=== PATIENT | male | born 1945 | race Caucasian/White ===

== ENCOUNTER 2017-10-29 08:15 | Outpatient (CLI) | payer MEDICARE | END 2017-10-29 08:16 | disposition home or self-care (01) | LOC: DI 08:15 | PROVIDERS: ATTEND Internal Medicine Cardiovascular Disease | DX: I48.0 Paroxysmal atrial fibrillation (principal); I08.3 Combined rheumatic disorders of mitral, aortic and tricuspid valves | CPT/HCPCS: 93306 ==

== ENCOUNTER 2018-06-23 08:00 | Outpatient (CLI) | payer MEDICARE | END 2018-06-23 23:59 | disposition home or self-care (01) | LOC: LAB.WCP 08:00 | PROVIDERS: ATTEND Physician Assistant | DX: I48.91 Unspecified atrial fibrillation (principal); Z79.01 Long term (current) use of anticoagulants ==

== ENCOUNTER 2018-07-21 08:00 | Outpatient (CLI) | payer MEDICARE | END 2018-07-21 23:59 | disposition home or self-care (01) | LOC: LAB.WCP 08:00 | PROVIDERS: ATTEND Physician Assistant | DX: I48.91 Unspecified atrial fibrillation (principal); Z79.01 Long term (current) use of anticoagulants | CPT/HCPCS: 81025 ==

== ENCOUNTER 2018-08-25 08:00 | Outpatient (CLI) | payer MEDICARE | END 2018-08-25 23:59 | disposition home or self-care (01) | LOC: LAB.WCP 08:00 | PROVIDERS: ATTEND Physician Assistant | DX: I48.91 Unspecified atrial fibrillation (principal); Z79.01 Long term (current) use of anticoagulants ==

== ENCOUNTER 2018-10-08 08:00 | Outpatient (CLI) | payer MEDICARE | END 2018-10-08 23:59 | disposition home or self-care (01) | LOC: LAB.WCP 08:00 | PROVIDERS: ATTEND Physician Assistant | DX: I48.91 Unspecified atrial fibrillation (principal); Z79.01 Long term (current) use of anticoagulants ==

== ENCOUNTER 2018-11-01 08:00 | Outpatient (CLI) | payer MEDICARE | END 2018-11-01 08:01 | disposition home or self-care (01) | LOC: LAB.WCP 08:00 | PROVIDERS: ATTEND Family Medicine | DX: I48.91 Unspecified atrial fibrillation (principal); Z79.01 Long term (current) use of anticoagulants ==

== ENCOUNTER 2020-01-20 08:00 | Outpatient (CLI) | payer MEDICARE | END 2020-01-20 23:59 | disposition home or self-care (01) | LOC: LAB.R 08:00 | PROVIDERS: ATTEND Family Medicine | DX: R30.0 Dysuria (principal) | CPT/HCPCS: 87086; 87181 ==

== ENCOUNTER 2020-01-23 14:58 | Outpatient (CLI) | payer MEDICARE ==
[2020-01-23] MEDS ORDERED: IOVERSOL 320 100 ML VIAL IVP ONE ×3 (15:24→16:50)
[2020-01-23 15:36] LABS: CREATININE 1.4 mg/dL (0.6-1.2)
--- NOTE | 2020-01-23 16:57 | CT Report ---
PROCEDURE: IVP INDICATIONS: HEMATURIA, ELEV PSA, HX PROSTATE ADENOCARCINOMA CONTRAST: IV CONTRAST: Optiray 320 ml: 140 PO CONTRAST: *NO PO CONTRAST TECHNIQUE: After the administration of intravenous contrast, 5 mm thick sections acquired from the diaphragms to the symphysis. 5 mm thick coronal and sagittal reformats were acquired. For radiation dose reducti on, the following was used: automated exposure control, adjustment of mA and/or kV according to lorelei ent size. COMPARISON: None. FINDINGS: Image quality: Excellent. Lung bases: Lung bases are clear. Heart size is normal. Urinary system: Both kidneys are normal in size and enhancement. An ovoid cyst is seen projecting p osteriorly from the mid cortex of the right kidney, containing what appears to be a thin septation wi thin and no solid component. No urothelial mass at the kidney level is seen bilaterally. Both ureters are nondistended. At the left lateral bladder border there appears to be asymmetric 8mm mural thicke ondina of the bladder wall, and the prostate appears to have been previously resected.. Contrast-filled renal calyces are normal in morphology. Contrast filled portions of both ureters are normal in dayan elsi. Bladder wall thickness is normal. Solid organs: Liver and spleen are normal in size and enhancement. Gallbladder appears normal Bili lydia system is non dilated. Pancreas enhances normally. No adrenal nodules. Peritoneum and bowel: Bowel loops demonstrate normal wall thickness and caliber. No free fluid or a ir. Nodes and vessels: No retroperitoneal or mesenteric adenopathy by size criteria. Aorta and inferior vena cava are normal in size. Abdominal wall: No ventral hernias. Pelvis: No pathologic free pelvic fluid. No inguinal hernias or adenopathy. Bones: No suspicious bony lesions. No vertebral body compression fractures. IMPRESSION: Ovoid cyst projecting from the right posterior cortex, which does not appear solid on po stcontrast imaging. A thin single septation appears present within this cyst. The cyst could be furth er characterized by dedicated single organ ultrasound if clinically desired. X No hydronephrosis or nephrolithiasis found. Reported prior prostate carcinoma, and the prostate appears likely is previously resected. The left l ateral bladder wall is asymmetrically thickened when compared to the bladder elsewhere measuring up t o 8 mm in thickness over a AP dimension of approximately 4 cm. Retrograde cystoscopy may be warranted given this appearance. No adenopathy found, no osseous osteoblastic metastatic disease is seen. Reviewed by: Dane Holguin MD on 01/23/2020 4:56 PM PDT Approved by: Dane Holguin MD on 01/23/2020 4:56 PM PDT Station ID: [id number]
== END 2020-01-23 14:59 | disposition home or self-care (01) ==
LOC: DI 14:58
PROVIDERS: ATTEND Family Medicine
DX: R97.20 Elevated prostate specific antigen [PSA] (principal); Z85.46 Personal history of malignant neoplasm of prostate; R31.9 Hematuria, unspecified; R30.0 Dysuria; N28.1 Cyst of kidney, acquired
CPT/HCPCS: 36415; 74178; 82565; Q9967

== ENCOUNTER 2022-06-27 11:06 | Emergency (ER) | payer MEDICARE ==
[2022-06-27] MEDS ORDERED: diltiaZEM INJ 5 MG/ML VIAL IVP STA (11:33)
[2022-06-27 11:40] LABS: BASOPHILS % (AUTO) 0.4 %; EOSINOPHILS % (AUTO) 0.1 %; HCT - HEMATOCRIT 38.5 % (42.0-52.0); HGB - HEMOGLOBIN 12.4 g/dL (14.0-18.0); LYMPHOCYTES # (AUTO) 0.6 10^3/uL (1.5-3.5); LYMPHOCYTES % (AUTO) 8.6 %; MEAN CORPUSCULAR HEMOGLOBIN 30.6 pg (27.0-31.0); MEAN CORPUSCULAR HGB CONC 32.2 g/dL (32.0-36.0); MEAN CORPUSCULAR VOLUME 95.1 fL (80.0-94.0); MEAN PLATELET VOLUME 9.3 fL (7.4-11.4); MONOCYTES # (AUTO) 1.4 10^3/uL (0.0-1.0); NEUTROPHILS # (AUTO) 5.2 10^3/uL (1.5-6.6); NEUTROPHILS % (AUTO) 71.6 %; PLT - PLATELET COUNT 206 10^3/uL (130-450); RED BLOOD COUNT 4.05 10^6/uL (4.70-6.10); RED CELL DISTRIBUTION WIDTH 12.7 % (12.0-15.0); WHITE BLOOD COUNT 7.2 x10^3/uL (4.8-10.8)
[2022-06-27 11:49] LABS: ALBUMIN 4.3 g/dL (3.2-5.5); ALBUMIN/GLOBULIN RATIO 1.3 (1.0-2.2); BILIRUBIN,TOTAL 0.8 mg/dL (0.2-1.0); CALCIUM 9.2 mg/dL (8.5-10.3); CREATININE 1.5 mg/dL (0.6-1.2); MAGNESIUM 1.8 mg/dL (1.7-2.8); PHOSPHORUS 3.1 mg/dL (2.5-4.6); POTASSIUM 4.1 mmol/L (3.5-5.0); TOTAL PROTEIN 7.5 g/dL (6.7-8.2)
[2022-06-27] MEDS ORDERED: METOPROLOL 5 MG/5 ML VIAL IVP STA (11:52)
[2022-06-27] MEDS ORDERED: SODIUM CHLORIDE 0.9% 1,000 ML IV STA (11:52)
--- NOTE | 2022-06-27 11:52 | ED Physician Documentation ---
History of Present Illness - Stated complaint Stated Complaint: FAST HEART RATE - Chief complaint Chief Complaint: Cardiac - History obtained from History obtained from: Patient - Additonal information Additional information: 77-year-old gentleman with history of paroxysmal atrial fibrillation on 2 rate control agents and Pradaxa. He did not take his metoprolol this morning but has been compliant with his other medications. He has been sick for about 3 days with cough and congestion. He did not know he had a fever until he checked in here. He went to the walk-in clinic prior to arrival where he was noted to be in A-fib with RVR and referred here for further evaluation and treatment. PD PAST MEDICAL HISTORY - Past Medical History Cardiovascular: Hypertension, High cholesterol, Atrial fibrillation, Arrhythmia - Past Surgical History Past Surgical History: Yes - Present Medications Home Medications: Ambulatory Orders Medication Instructions Recorded Confirmed Metoprolol Tartrate 50 mg PO BID 11/08/13 06/27/22 Dabigatran Etexilate Mesylate 150 mg PO BID 06/27/22 06/27/22 [Dabigatran Etexilate] Montelukast [Singulair] 10 mg PO QPM 06/27/22 06/27/22 dilTIAZem HCL [Diltiazem 24Hr ER 240 mg PO DAILY 06/27/22 06/27/22 (Xr)] - Allergies Allergies/Adverse Reactions: Allergies Allergy/AdvReac Type Severity Reaction Status Date / Time No Known Drug Allergies Allergy Verified 11/08/13 09:58 - Social History Does the pt smoke?: No Smoking Status: Never smoker Does the pt drink ETOH?: Yes Does the pt have substance abuse?: No PD ED PE NORMAL - Vitals Vital signs reviewed: Yes - General General: Alert and oriented X 3, No acute distress - HEENT HEENT: PERRL, EOMI, Pharynx benign - Cardiac Cardiac: Other (Rapid and irregular without murmur) - Respiratory Respiratory: No respiratory distress, Clear bilaterally - Abdomen Abdomen: Non tender - Back Back: No CVA TTP, No spinal TTP - Derm Derm: Normal color, Warm and dry - Extremities Extremities: No edema, No calf tenderness / cord - Neuro Neuro: Alert and oriented X 3, Normal speech Results - Vitals Vitals: Vital Signs - 24 hr 06/27/22 06/27/22 06/27/22 11:08 11:19 12:00 Temperature 38.3 C H Heart Rate 75 161 H 118 H Respiratory 16 22 Rate Blood Pressure 130/69 107/66 O2 Saturation 97 94 06/27/22 06/27/22 06/27/22 12:18 12:37 13:09 Temperature Heart Rate 123 H 84 75 Respiratory 20 22 24 Rate Blood Pressure 104/69 99/54 L 101/60 O2 Saturation 94 90 L 96 06/27/22 13:14 Temperature Heart Rate 80 Respiratory 26 H Rate Blood Pressure O2 Saturation Oxygen O2 Source Room air - EKG (time done) 1114 EKG releavant findings:: EKG personally interpreted by author of this note. Relevant findings are: Rate: Rate (enter#) (164) Rhythm: Atrial fibrillation [place]: Normal QRS: Normal Ischemia: Non specific changes. No: ST elevation c/w ischemia - Labs Labs: Laboratory Tests 06/27/22 06/27/22 06/27/22 11:25 11:25 11:40 WBC 7.2 RBC 4.05 L Hgb 12.4 L Hct 38.5 L MCV 95.1 H MCH 30.6 MCHC 32.2 RDW 12.7 Plt Count 206 MPV 9.3 Neut # (Auto) 5.2 Lymph # (Auto) 0.6 L [place] # (Auto) 1.4 H Eos # (Auto) 0.0 Baso # (Auto) 0.0 Absolute Nucleated RBC 0.00 Nucleated RBC % 0.0 Sodium 132 L Potassium 4.1 Chloride 98 L Carbon Dioxide 23 Anion Gap 11.0 BUN 23 H Creatinine 1.5 H Estimated GFR (MDRD) 45 L Glucose 111 H Lactic Acid Calcium 9.2 Phosphorus 3.1 Magnesium 1.8 Total Bilirubin 0.8 AST 27 ALT 23 Alkaline Phosphatase 71 Total Protein 7.5 Albumin 4.3 Globulin 3.2 Albumin/Globulin Ratio 1.3 Lipase 47 Nasal Adenovirus (PCR) NOT DETECTED Nasal B. parapertussis DNA (PCR) NOT DETECTED Nasal Coronavir 229E PCR NOT DETECTED Nasal Coronavir HKU1 PCR NOT DETECTED Nasal Coronavir NL63 PCR NOT DETECTED Nasal Coronavir OC43 PCR NOT DETECTED Nasal Enterovir/Rhinovir PCR NOT DETECTED Nasal Influenza B PCR NOT DETECTED Nasal Influenza A PCR NOT DETECTED Nasal Parainfluen 1 PCR NOT DETECTED Nasal Parainfluen 2 PCR NOT DETECTED Nasal Parainfluen 3 PCR NOT DETECTED Nasal Parainfluen 4 PCR NOT DETECTED Nasal RSV (PCR) NOT DETECTED Nasal B.pertussis DNA PCR NOT DETECTED Nasal C.pneumoniae (PCR) NOT DETECTED [place] Human Metapneumo PCR NOT DETECTED Nasal M.pneumoniae (PCR) NOT DETECTED Nasal SARS-CoV-2 (PCR) DETECTED A 06/27/22 11:50 WBC RBC Hgb Hct MCV MCH MCHC RDW Plt Count MPV Neut # (Auto) Lymph # (Auto) [place] # (Auto) Eos # (Auto) Baso # (Auto) Absolute Nucleated RBC Nucleated RBC % Sodium Potassium Chloride Carbon Dioxide Anion Gap BUN Creatinine Estimated GFR (MDRD) Glucose Lactic Acid 1.0 Calcium Phosphorus Magnesium Total Bilirubin AST ALT Alkaline Phosphatase Total Protein Albumin Globulin Albumin/Globulin Ratio Lipase Nasal Adenovirus (PCR) Nasal B. parapertussis DNA (PCR) Nasal Coronavir 229E PCR Nasal Coronavir HKU1 PCR Nasal Coronavir NL63 PCR Nasal Coronavir OC43 PCR Nasal Enterovir/Rhinovir PCR Nasal Influenza B PCR Nasal Influenza A PCR Nasal Parainfluen 1 PCR Nasal Parainfluen 2 PCR Nasal Parainfluen 3 PCR Nasal Parainfluen 4 PCR Nasal RSV (PCR) Nasal B.pertussis DNA PCR Nasal C.pneumoniae (PCR) [place] Human Metapneumo PCR Nasal M.pneumoniae (PCR) Nasal SARS-CoV-2 (PCR) - Rads (name of study) Single view chest x-ray demonstrates coarse interstitial markings possibly bronchiectasis or atypical infection. Relevant Findings:: Final report received, EMP independent interpretation of test Procedures - Procedural sedation Sedation prep: Informed consent, Time out completed, Last meal (yesterday), PE performed, ASA 2 - mild disease Sedation Medications: propofol (100mg IVP x1) Mallampati classification: I Patient status during sedation: Responds to tactile Sedation recovery: Recovered uneventfully Time in sedation (Minutes): 10 - Cardioversion - Major 1 @ 1:00pm Time of attempt: 13:00 Indication: Tachyarrhythmia Risks, benefits, alternatives explained to: Pt CS via: Pads, AP approach Sync: Biphasic (120 joules) Post cardioversion rhythm: NSR (with ectopy) Performed by: ED MD VALENTINO Medical Decision Making - ED course Complexity details: reviewed results (CBC reviewed with mild anemia, actually better than priors. Also mild lymphopenia with a white cell count normal. CMP reviewed with mild hyponatremia, baseline kidney function, magnesium at 1.8, will give some IV magnesium as 1.8 is low normal. Lactate normal.) ED course: 77-year-old gentleman who presents with rapid A-fib in the setting of respiratory infection. Found to be positive for COVID. He was sedated and cardioverted successfully given that he is on therapeutic anticoagulation. Starting molnupiravir for antivirals noting that paxlovid interacts with his blood thinner. Departure - Departure Disposition: 01 Home, Self Care Clinical Impression: Atrial fibrillation with RVR, COVID-19 Condition: Stable Record reviewed to determine appropriate education?: Yes Instructions: Atrial Fibrillation Dc, ED Viral Syndrome Comments: Take the molnupiravir antivirals as directed until gone. Continue your current medications.Return for new or worsening symptoms. Do not drive today. You do have COVID and need to quarantine per CDC guidelines. As discussed, it looks like you have a probably an atypical/viral pneumonia on your x-ray. Recommend repeat x-ray in 2 weeks, for reevaluation. You can set this up with your clinic care physician with whom you should follow-up, next available appointment.
--- NOTE | 2022-06-27 12:21 | XRAY Report ---
PROCEDURE: Chest 1 View X-Ray INDICATIONS: cough, fever TECHNIQUE: One view of the chest was acquired. COMPARISON: 03/10/2018 FINDINGS: Surgical changes and devices: None. Lungs and pleura: Coarse interstitial markings, with more focal suspected bronchiectasis in the righ t lower lung. No pleural effusion. No dense consolidation. Mediastinum: Borderline large heart. Bones and chest wall: No suspicious bony lesions. Overlying soft tissues appear unremarkable. IMPRESSION: Coarse interstitial markings, and possible bronchiectasis, suspicious for bronchitis, possibly acute on chronic, and atypical infection. Consider future imaging surveillance to assess for resolution. Reviewed by: Maurice Stack MD on 06/27/2022 12:19 PM PST Approved by: Maurice Stack MD on 06/27/2022 12:19 PM PST Station ID: [id number]
[2022-06-27] MEDS ORDERED: MAGNESIUM SULFATE 2 GRAM 2 GM/50 ML BAG IV ONE (12:29)
[2022-06-27] MEDS ORDERED: PROPOFOL 200 MG/20 ML VIAL IVP STA (12:37)
[2022-06-27 12:46] LABS: B. PARAPERTUSSIS- RESP PCR PAN NOT DETECTED; B. PERTUSSIS- RESP PCR PANEL NOT DETECTED; C. PNEUMONIAE- RESP PCR PANEL NOT DETECTED; CORONAVIRUS 229E-RESP PCR NOT DETECTED; CORONAVIRUS HKU1-RESP PCR NOT DETECTED; CORONAVIRUS NL63-RESP PCR NOT DETECTED; CORONAVIRUS OC43-RESP PCR NOT DETECTED; HUMAN METAPNEUMOVIRUS NOT DETECTED; INFLUENZA A- RESP PCR PANEL NOT DETECTED; INFLUENZA B - RESP PCR PANEL NOT DETECTED; M. PNEUMONIAE- RESP PCR PANEL NOT DETECTED; PARAINFLUENZA VIRUS 1 NOT DETECTED; PARAINFLUENZA VIRUS 2 NOT DETECTED; PARAINFLUENZA VIRUS 3 NOT DETECTED; PARAINFLUENZA VIRUS 4 NOT DETECTED; RHINOVIRUS/ENTEROVIRUS NOT DETECTED; RSV- RESP PCR PANEL NOT DETECTED
[2022-06-27 12:49] LABS: SARS-CoV-2 -RESP PCR PANEL DETECTED
[2022-06-27] MEDS ORDERED: MOLNUPIRAVIR PREPACK PO STA (13:09)
[2022-06-27 13:45] VITALS: BP 104/62
== END 2022-06-27 13:51 | disposition home or self-care (01) ==
LOC: ED 11:06
DX: I48.91 Unspecified atrial fibrillation (principal); U07.1 COVID-19; E87.1 Hypo-osmolality and hyponatremia; Z79.01 Long term (current) use of anticoagulants
CPT/HCPCS: 36415; 71045; 80053; 83605; 83690; 83735; 84100; 85025; 87040; 87633; 92960; 93005; 96365; 96375; 99152; 99285; J3490

== ENCOUNTER 2022-07-10 12:41 | Outpatient (CLI) | payer MEDICARE ==
--- NOTE | 2022-07-10 13:56 | XRAY Report ---
PROCEDURE: Chest 2 View X-Ray INDICATIONS: COVID-19 CORONAVIRUS INFECTION TECHNIQUE: 2 views of the chest were acquired. COMPARISON: None. FINDINGS: Surgical changes and devices: None. Lungs and pleura: No pleural effusions or pneumothorax. Lungs are clear. Mediastinum: Mediastinal contours are normal. Heart size is normal. Bones and chest wall: No suspicious bony abnormalities. Soft tissues appear unremarkable. IMPRESSION: No acute cardiopulmonary process. Reviewed by: Augustin Izquierdo on 07/10/2022 1:54 PM PDT Approved by: Augustin Izquierdo on 07/10/2022 1:54 PM PDT Station ID: [id number]
== END 2022-07-10 12:42 | disposition home or self-care (01) ==
LOC: DI 12:41
PROVIDERS: ATTEND Internal Medicine
DX: U07.1 COVID-19 (principal)

== ENCOUNTER 2023-10-16 16:10 | Outpatient (CLI) | payer MEDICARE ==
--- NOTE | 2023-10-17 03:29 | XRAY Report ---
PROCEDURE: Hand 3+V RT INDICATIONS: HAND JOINT PAIN,RIGHT TECHNIQUE: 3 view(s) of the hand(s) acquired. COMPARISON: None FINDINGS: Bones: No fractures or dislocations. No suspicious bony lesions. Arthritic changes noted particula rly in the fifth PIP but also involving the first carpometacarpal joint as well as third and fourth D IP. 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
== END 2023-10-16 16:11 | disposition home or self-care (01) ==
LOC: DI 16:10
PROVIDERS: ATTEND Physician Assistant
DX: M19.041 Primary osteoarthritis, right hand (principal)